=== PATIENT | female | born 2000 | race Two or more races ===

== ENCOUNTER → 2019-03-02 | Outpatient (CLI) | payer OTHER ==
--- NOTE | 2019-03-03 09:45 | REP ---
MRI RIGHT KNEE: TECHNIQUE: Axial proton density fat saturation, sagittal proton density T2 STIR, water excitation, coronal proton density, proton density fat saturation. The menisci are intact. The cruciate and collateral ligaments are intact. The extensor mechanism is intact. The medial and lateral patella retinacula are intact. No osteochondral defect is seen. Bone marrow signal is homogenous and unremarkable with no bone marrow edema or occult fracture. There is a normal amount of joint fluid. No popliteal cyst is seen. IMPRESSION: Essentially negative MRI of the right knee. Electronically Signed by Kwadwo Strange MD 03/04/2019 08:54 A
== END ==
LOC: M RAD 17:34
PROVIDERS: ATTEND Physician Assistant
DX: M25.561 Pain in right knee (principal)